=== PATIENT | female | born 1960 | race Caucasian/White ===

== ENCOUNTER 2016-08-31 06:35 | Emergency (ER) | payer BC ==
[2016-08-31 08:02] LABS: Hematocrit 40 % (35-47); Hemoglobin 13.4 g/dl (12.0-16.0); Mean Corpuscular HGB Conc 33 g/dl (31-36); Mean Corpuscular Hemoglobin 31 pg (27-31); Mean Corpuscular Volume 93 fL (80-97); Mean Platelet Volume 8 um3 (7.4-10.4); Red Blood Count 4.35 10^6/ul (4.0-5.4); Red Cell Distribution Width 13 % (10.5-15); White Blood Count 6.7 10^3/ul (3.5-10.8)
[2016-08-31 08:08] LABS: BUN/Creatinine Ratio 14.7 (8-20); Calcium 9.4 mg/dL (8.6-10.3); EGFR African American 62.1 (>60); EGFR Non-African American 48.3 (>60); Potassium 3.6 mmol/L (3.5-5.0); Urine Bacteria Absent (Absent); Urine Bilirubin Negative (Negative); Urine Glucose Negative (Negative); Urine Nitrite Negative (Negative)
[2016-08-31] MEDS ORDERED: NS 0.9% 1000 ML* 1,000 ML IV ONE (08:41)
[2016-08-31 09:44] LABS: Urine Bilirubin Negative (Negative); Urine Glucose Negative (Negative); Urine Nitrite Negative (Negative)
--- NOTE | 2016-08-31 09:55 | RAD ---
HISTORY: Left flank pain COMPARISONS: None VIEWS: 2: Frontal dual-energy and lateral views of the chest. FINDINGS: CARDIOMEDIASTINAL SILHOUETTE: There are calcified mediastinal lymph nodes RODRÍGUEZ: There are calcified hilar lymph nodes. PLEURA: The costophrenic angles are sharp. No pleural abnormalities are noted. LUNG PARENCHYMA: The lungs are clear. ABDOMEN: The upper abdomen is clear. There is no subphrenic gas. BONES AND SOFT TISSUES: No bone or soft tissue abnormalities are noted. OTHER: None. 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 NO ACTIVE CARDIOPULMONARY DISEASE
[2016-08-31] MEDS ORDERED: Ketorolac INJ* 30 MG/ML 1 ML VIAL IV PUSH ONE (10:22)
--- NOTE | 2016-08-31 11:42 | RAD ---
INDICATION: Left flank abdominal pain. COMPARISON: There are no prior studies available for comparison. TECHNIQUE: Multiple real-time images of the kidneys and urinary bladder were obtained. FINDINGS: The kidneys are normal in size shape and echogenicity. The right kidney measured 11.7 x 3.3 x 4.2 cm and the left kidney measured 10.6 x 3.9 x 4.6 cm. No significant focal abnormality or hydronephrosis was present. The bladder is normal in contour. No intraluminal abnormalities are seen. No bladder wall thickening is noted. There are bilateral ureteral jets present within the urinary bladder. The prevoid volume was 330 ml and a post void residual was 3 ml. IMPRESSION: NEGATIVE EXAM, NO EVIDENCE FOR HYDRONEPHROSIS.
--- NOTE | 2016-08-31 12:30 | RAD ---
CLINICAL HISTORY: Left flank pain COMPARISON: None TECHNIQUE: Multiple contiguous axial CT scans were obtained of the abdomen and pelvis, without intravenous contrast enhancement. Coronal and sagittal multiplanar reformations are submitted for review. Oral contrast was not administered. FINDINGS: The study is limited by the lack of intravenous contrast. This limits evaluation of the solid organs and vasculature. LUNG BASES: The lung bases are clear. LIVER: The liver is normal in shape, size, contour, and attenuation. BILE DUCTS: There is no intrahepatic or extrahepatic biliary dilatation. GALLBLADDER: The gallbladder is not visualized. Surgical clips are noted in the gallbladder fossa. PANCREAS: The pancreas is normal, without mass or ductal dilatation. SPLEEN: Normal in size and appearance. UPPER GI TRACT: Evaluation of the gastrointestinal tract is limited by incomplete gastric distention. The upper GI tract is unremarkable. SMALL BOWEL AND MESENTERY: The small bowel is normal in contour, course, and caliber. There is no obstruction or dilatation. COLON: The colon is normal in contour, course, caliber. There is no pericolonic inflammatory change. ADRENALS: Normal bilaterally. KIDNEYS: The kidneys are normal in shape, size, contour, and axis. There is no hydronephrosis or nephrolithiasis. BLADDER: The bladder is smooth in contour. PELVIC ORGANS: The uterus and adnexa are grossly normal for technique. AORTA: The aorta is normal. IVC: Unremarkable LYMPH NODES: There is no lymphadenopathy by size criteria. ABDOMINAL WALL: There is no evidence for abdominal wall hernia. BONES AND SOFT TISSUES: There are mild diffuse degenerative changes. OTHER: None IMPRESSION: NO APPRECIABLE HYDRONEPHROSIS OR NEPHROLITHIASIS
[2016-08-31 13:45] VITALS: BP 117/67
--- NOTE | 2016-09-17 20:16 | ED ---
Pascual Morley Adam, scribed for Wiliam Gallego MD on 08/31/16 at 0750 . Back Pain - HPI Summary HPI Summary: 56 y/o female with PMHx of UTI's presents to the ED via EMS with c/o pain in her lower left side. Pain began two days ago at 0330, located in the lower left side below the ribcage with no radiation to the groin. Pain described as a sharp pain, waxing and waning in intensity, and does not intensify with palpation. Pt states relief from pain while at rest but experiences pain upon waking up such as in the middle of the night and notes that it worsens with deep breaths especially when exhaling. She states that during initial onset of pain she took prescribed Batrim ABx, but does not known the shelf life of bottle. She denies any associated fever, diaphoresis, chills, hematuria, DM, recent travel, or recent illnesses (such as flu or cold). In addition to her Hx of UTI's, she reports PMHx of bladder infections. She denies FMHx of blood clots. Naproxen was also taken PO [employer] with a mild improvement. - History of Current Complaint Chief Complaint: EDFlankPain Stated Complaint: LEFT FLANK PAIN Time Seen by Provider: 08/31/16 07:39 Hx Obtained From: Patient Onset/Duration: Lasting Days, Still Present Onset/Duration: Started Days Ago, Atraumatic, Still Present Timing: Intermittent Back Pain Location: Is Discrete @ - Left flank Severity Initially: Moderate Severity Currently: Mild Pain Intensity: 8 Pain Scale Used: 0-10 Numeric Character: Sharp - Pain worsens with deep breaths Aggravating Symptom(s): Movement - Exhaling Alleviating Symptom(s): Rest, OTC Meds - Naproxen PO [employer] Associated Signs And Symptoms: Positive: Flank Pain, Other - Negative for diaphoresis, chills, and hematuria. Negative: Fever Related History: Similar Episode Dx As - PMHx of UTI and Bladder infection - Allergies/Home Medications Allergies/Adverse Reactions: Allergies Allergy/AdvReac Type Severity Reaction Status Date / Time No Known Allergies Allergy Verified 12/02/15 11:31 PMH/Surg Hx/FS Hx/Imm Hx Endocrine/Hematology History: Denies: Hx Diabetes, Hx Thyroid Disease Cardiovascular History: Denies: Hx Hypertension Respiratory History: Denies: Hx Asthma, Hx Chronic Obstructive Pulmonary Disease (COPD) GI History: Denies: Hx Ulcer History: Reports: Other Problems/Disorders - PMHx bladder infection Neurological History: Reports: Hx Migraine - Surgical History Surgery Procedure, Year, and Place: lt shoulder repair, gallbladder removed, 2 c -sections Infectious Disease History: No Infectious Disease History: Denies: Hx Clostridium Difficile, Hx Hepatitis, Hx Human Immunodeficiency Virus (HIV), Hx of Known/Suspected MRSA, Hx Shingles, Hx Tuberculosis, Hx Known/ Suspected VRE, Hx Known/Suspected VRSA, History Other Infectious Disease, Traveled Outside the [place] in Last 30 Days - Family History Known Family History: Positive: Other - No FMHx of blood clots - Social History Lives: With Family - Alcohol Use: Occasionally Hx Substance Use: No Substance Use Type: Reports: None Hx Tobacco Use: No Smoking Status (MU): Never Smoked Tobacco Review of Systems Negative: Fever, Chills, Skin Diaphoresis Negative: Erythema Negative: Sore Throat Negative: Chest Pain Negative: Shortness Of Breath, Cough Negative: Abdominal Pain, Vomiting, Nausea Positive: flank pain - Left. Negative: dysuria, hematuria Negative: Myalgia, Edema Negative: Rash Neurological: Other - Negative dizziness All Other Systems Reviewed And Are Negative: Yes Physical Exam - Summary Physical Exam Summary: Constitutional: Well-developed, Well-nourished, Alert. (-) Distressed Skin: Warm, Dry HENT: Normocephalic; Atraumatic Eyes: Conjunctiva normal Neck: Musculoskeletal ROM normal neck. (-) JVD, (-) Stridor, (-) Tracheal deviation Cardio: Rhythm regular, rate normal, Heart sounds normal; Intact distal pulses; The pedal pulses are 2+ and symmetric. Radial pulses are 2+ and symmetric. (-) Murmur Pulmonary/Chest wall: Effort normal. (-) Respiratory distress, (-) Wheezes, (-) Rales Abd: Soft, (-) Tenderness, (-) Distension, (-) Guarding, (-) Rebound Musculoskeletal: (-) Edema Lymph: (-) Cervical adenopathy Neuro: Alert, Oriented x3 Psych: Mood and affect Normal Triage Information Reviewed: Yes Vital Signs On Initial Exam: Initial Vitals Temp Pulse Resp BP Pulse Ox 98.3 F 74 18 111/71 100 08/31/16 06:42 08/31/16 06:42 08/31/16 06:42 08/31/16 06:42 08/31/16 06:42 Vital Signs Reviewed: Yes - [place] Coma Scale Coma Scale Total: 15 Diagnostics - Vital Signs Vital Signs Temp Pulse Resp BP Pulse Ox 08/31/16 07:30 68 102/60 97 08/31/16 07:26 72 98/65 96 08/31/16 07:18 67 98 08/31/16 06:42 98.3 F 74 18 111/71 100 - Laboratory Result Diagrams: 08/31/16 06:55 08/31/16 06:55 Lab Statement: Any lab studies that have been ordered have been reviewed, and results considered in the medical decision making process. 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 NO ACTIVE CARDIOPULMONARY DISEASE - CT ABDOMEN/PELVIS CT Interpretation Completed By: Radiologist - IMPRESSION: NO APPRECIABLE HYDRONEPHROSIS OR NEPHROLITHIASIS - Additional Comments Diagnostic Additional Comments: D-Dimer, Quantitative < 200 ABDOMEN/BLADDER ULTRASOUND - IMPRESSION: NEGATIVE EXAM, NO EVIDENCE FOR HYDRONEPHROSIS. Back Pain Course/Dx - Course Course Of Treatment: Suspect partially treated UTI with antibiotics. Supplied fresh prescription. - Diagnoses Provider Diagnoses: Flank pain Discharge - Discharge Plan Condition: Good Disposition: HOME Prescriptions: Sulfamethox/Trimethoprim DS* [Bactrim DS 800/160 TAB*] 1 tab PO BID #14 tab Patient Education Materials: Flank Pain (ED) Referrals: Domenic Carlos MD [Primary Care Provider] - Additional Instructions: Follow up with Dr. Carlos. The documentation as recorded by the Pascual begum Adam accurately reflects the service I personally performed and the decisions made by me, Wiliam Gallego MD.
== END 2016-08-31 13:45 | disposition home or self-care (01) ==
LOC: ED 06:35
DX: R10.32 Left lower quadrant pain (principal); Z87.440 Personal history of urinary (tract) infections
CPT/HCPCS: 36415; 71020; 74176; 76770; 80048; 81003; 81015; 85027; 85379; 87086; 96360; 96374; 99284; J1885